=== PATIENT | female | born 1985 | race Caucasian/White ===

== ENCOUNTER 2016-08-05 16:44 | Emergency (ER) | payer OTHER ==
[~2016-08-05] VITALS: Ht 170.1 cm; Wt 79.4 kg
[~2016-08-05 16:44] MED LIST: ATIVAN1 MG PO; AUGMENTIN 875875 MG PO; CLARITIN10 MG PO; FLONASE 0.05% 121 EA NAS; FLONASE0.05 MG/AC NS; MOTRIN800 MG PO; NADOLOL20 MG PO; PHENERGAN W/ DE30 ML PO; PREDNICOT10 MG PO; PRILOSEC20 MG PO; VICODIN 5/500 505 MG PO; ZOFRAN4 MG PO
[2016-08-05] MEDS ORDERED: LEXAPRO10 MG PO (16:53)
[2016-08-05 17:11] LABS: BASO # 0.1 10*3/uL (0.0-0.1); BASO % 0.9 % (0.0-1.0); EOS # 0.1 10*3/uL (0.0-0.4); EOS % 2.4 % (1.0-4.0); HEMATOCRIT 36.8 % (37.0-47.0); HEMOGLOBIN 12.7 g/dl (12.0-16.0); LYMPH # 1.5 10*3/uL (1.3-4.4); LYMPH % 25.7 % (27.0-41.0); MEAN CORPUSCULAR HGB 31.8 pg (27.0-31.0); MEAN CORPUSCULAR HGB CONC 34.5 g/dl (33.0-37.0); MEAN PLATELET VOLUME 10.2 fl (9.6-12.3); MONO # 0.4 10*3/uL (0.1-1.0); MONO % 6.6 % (3.0-9.0); NEUT # 3.8 10*3/uL (2.3-7.9); NEUT % 64.1 % (47.0-73.0); PLATELET COUNT AUTOMATED 256 10*3/uL (130-400); RED CELL DISTRI WIDTH 12.5 % (0-14.5); WHITE BLOOD COUNT 5.9 10*3/uL (4.8-10.8)
[2016-08-05 17:28] LABS: FREE T4 0.95 ng/dl (0.76-1.46)
[2016-08-05 17:28] LABS: ALBUMIN 3.7 gm/dl (3.1-4.5); ALKALINE PHOSPHATASE 133 U/L (45-117); BUN 10 mg/dl (7-24); CARBON DIOXIDE 24 mmol/L (21-32); CHLORIDE 109 mmol/L (98-107); EST GLOM FILT AFRICAN AMERICAN > 60 ml/min; GLUCOSE 127 mg/dL (65-99); MAGNESIUM 2.1 mg/dL (1.5-2.1); POTASSIUM 3.7 mmol/L (3.5-5.1); SGOT/AST 17 IU/L (3-35); SGPT/ALT 18 U/L (12-78); SODIUM 143 mmol/L (136-145); TOTAL PROTEIN 7.6 gm/dL (6.4-8.2)
[2016-08-05 17:29] LABS: BILIRUBIN, TOTAL 0.4 mg/dl (0.2-1.0)
[2016-08-05 17:30] LABS: TROPONIN I < 0.015 ng/ml (<0.045)
[2016-08-05 17:34] LABS: THYROID STIM HORMONE (HS) 1.57 uIU/ml (0.358-4.75)
[2016-08-05 17:51] LABS: BILIRUBIN NEGATIVE (NEGATIVE); BLOOD NEGATIVE (NEGATIVE); CLARITY SL CLOUDY (CLEAR); COLOR YELLOW (YELLOW); GLUCOSE NEGATIVE (NEGATIVE); KETONE NEGATIVE (NEGATIVE); LEUKO ESTERASE NEGATIVE (NEGATIVE); NITRITE NEGATIVE (NEGATIVE); PH 5.5 (5.0-9.0); PROTEIN NEGATIVE (NEGATIVE); SPECIFIC GRAVITY <= 1.005 (1.005-1.030); UROBILINOGEN 0.2 E.U./dl (0.2-1.0)
[2016-08-05 17:58] LABS: RBC 0-2 rbc/hpf (0-2)
[2016-08-05 17:59] LABS: BACTERIA TRACE; URINE REFLEX COMMENT NO (NO); WBC 0-2 wbc/hpf (0-5)
[2016-08-05 18:00] VITALS: BP 156/90
[2016-08-05 19:24] LABS: INTERNATIONAL NORM RATIO 0.9 (2.0-3.5); PROTHROMBIN TIME 9.7 SECONDS (9.0-12.4)
== END 2016-08-05 19:20 | disposition home or self-care (01) ==
LOC: ED 16:44
PROVIDERS: Emergency Medicine; Physician Assistant
DX: R55 Syncope and collapse (principal); R00.0 Tachycardia, unspecified; Z79.899 Other long term (current) drug therapy

== ENCOUNTER → 2016-08-10 | Outpatient (CLI) | payer OTHER ==
[~2016-08-10] MED LIST changes: +LEXAPRO10 MG PO
--- NOTE | ~2016-08-10 | HM ---
[place] HOLTER MONITOR REPORT NAME: MEGAN VACA UNIT #: [id number] ROOM: DOCTOR: MADISON BARLOW MD BIRTHDATE: [birth year] DOS: 08/14/2016 A 24-hour Holter monitor. The patient with palpitations. The patient's Holter revealed minimum heart rate of 50, maximum heart rate of 113, average of 73 beats per minute. The patient remained in sinus rhythm throughout the entire period. No significant ventricular or supraventricular dysrhythmia. No significant bradycardic episodes. No evidence of any pauses. No cardiac dysrhythmia is present. FINAL IMPRESSION: Sinus rhythm, no significant ventricular or supraventricular dysrhythmia. No significant pauses. MADISON BARLOW MD CM:HOLTER:HOLTER MONITOR REPORT [id number] MADISON BARLOW MD
== END | disposition home or self-care (01) ==
LOC: CARD 07:17
DX: R00.2 Palpitations (principal)

== ENCOUNTER → 2021-08-08 | Outpatient (CLI) | payer OTHER | END | disposition home or self-care (01) | LOC: CARD 11:21 | PROVIDERS: ATTEND Internal Medicine Cardiovascular Disease | DX: I34.0 Nonrheumatic mitral (valve) insufficiency (principal); R00.0 Tachycardia, unspecified; R00.2 Palpitations; Z86.79 Personal history of other diseases of the circulatory system ==